=== PATIENT | female | born 1980 | race Caucasian/White ===

== ENCOUNTER → 2016-12-24 | Outpatient (CLI) | payer OTHER ==
[2016-12-24 13:55] LABS: ABSOLUTE LYMPHOCYTES (AUTO) 1.5 10^3/uL (0.5-4.7); ABSOLUTE MONOCYTES (AUTO) 0.3 10^3/uL (0.1-1.4); ABSOLUTE NEUT (AUTO) 4.3 10^3/uL (1.7-8.2); BASOPHILS % (AUTO) 0.4 % (0-2); EOSINOPHILS % (AUTO) 0.7 % (0-6); HEMATOCRIT 38.3 % (36.0-47.0); HEMOGLOBIN 12.8 g/dL (12.0-15.5); HGB HCT DIFFERENCE 0.1; LYMPHOCYTES % (AUTO) 24.2 % (13-45); MEAN CORPUSCULAR HEMOGLOBIN 29.9 pg (27.0-33.4); MEAN CORPUSCULAR HGB CONC 33.4 g/dL (32.0-36.0); MEAN CORPUSCULAR VOLUME 89 fl (80-97); MONOCYTES % (AUTO) 5.4 % (3-13); RED BLOOD COUNT 4.28 10^6/uL (3.72-5.28); SEGMENTED NEUTROPHILS % (AUTO) 69.3 % (42-78); WHITE BLOOD COUNT 6.2 10^3/uL (4.0-10.5)
[2016-12-24 14:14] LABS: ALANINE AMINOTRANSFERASE 26 U/L (9-52); ALBUMIN 4.4 g/dL (3.5-5.0); ALKALINE PHOSPHATASE 67 U/L (38-126); ANION GAP 12 (5-19); ASPARTATE AMINO TRANSFERASE 19 U/L (14-36); BILIRUBIN,TOTAL 0.3 mg/dL (0.2-1.3); BLOOD UREA NITROGEN 7 mg/dL (7-20); CALCIUM 9.7 mg/dL (8.4-10.2); CARBON DIOXIDE 27 mmol/L (22-30); CHLORIDE 104 mmol/L (98-107); CREATININE RESULT 0.54 mg/dL (0.52-1.25); GLUCOSE 84 mg/dL (75-110); POTASSIUM 4.4 mmol/L (3.6-5.0); SODIUM 142.7 mmol/L (137-145); TOTAL PROTEIN 7.1 g/dL (6.3-8.2)
== END ==
LOC: OD 09:43
PROVIDERS: ATTEND Orthopaedic Surgery
DX: L93.0 Discoid lupus erythematosus (principal)
CPT/HCPCS: 36415; 80053; 85025; 86038

== ENCOUNTER 2017-04-24 17:57 | Emergency (ER) | payer OTHER ==
[2017-04-24] MEDS ORDERED: METOCLOPRAMIDE HCL INJ/PF 10 MG/2 ML SDV IV ONE (20:08)
[2017-04-24] MEDS ORDERED: NORMAL SALINE 1000 ML 1,000 ML IV ONE (20:08)
--- NOTE | 2017-04-24 20:12 | ER Document Report ---
ED Medical Screen (RME) - General Chief Complaint: Vomiting Stated Complaint: VOMITING Time Seen by Provider: 04/24/17 20:08 Mode of Arrival: Ambulatory Information source: Patient Notes: Pt is a 36 year old female who presents to the ER today for 1 day of nausea/ vomiting with epigastric pain. She denies fever/chills, diarrhea or abd pain elsewhere. She has had this happen in the past but hasn't been diagnosed with anything. Primary care sent her here because zofran and 1L of fluids didn't work there today. TRAVEL OUTSIDE OF THE [place] IN LAST 30 DAYS: No - Related Data Allergies/Adverse Reactions: codeine Allergy (Verified 04/24/17 18:04) hydrocodone Allergy (Verified 04/24/17 18:04) oxycodone Allergy (Verified 04/24/17 18:04) promethazine [From Phenergan] Allergy (Verified 04/24/17 18:04) Sulfa (Sulfonamide Antibiotics) Allergy (Verified 04/24/17 18:04) latex Adverse Reaction (Verified 04/24/17 18:04) Past Medical History - General Information source: Patient - Social History Chew tobacco use (# tins/day): No Frequency of alcohol use: Rare Drug Abuse: None Renal/ Medical History: Denies: Hx Peritoneal Dialysis GI Medical History: Reports: Hx Gastroesophageal Reflux Disease Musculoskeltal Medical History: Reports Hx Arthritis, Reports Hx Musculoskeletal Deformity, Reports Hx Musculoskeletal Trauma - right wrist Traumatic Medical History: Reports: Hx Fractures - wrist Past Surgical History: Reports: Hx Oral Surgery - wisdom teeth - Immunizations Immunizations up to date: No Hx Diphtheria, Pertussis, Tetanus Vaccination: No Review of Systems - Review of Systems Gastrointestinal: See HPI Physical Exam - Vital signs Vitals: Temp Pulse Resp BP Pulse Ox 97.6 F 57 L 20 157/81 H 100 04/24/17 18:00 04/24/17 18:00 04/24/17 18:00 04/24/17 18:00 04/24/17 18:00 - Notes Notes: PHYSICAL EXAMINATION: GENERAL: actively intermittently vomiting, in no acute distress. Course - Vital Signs Vital signs: Temp Pulse Resp BP Pulse Ox 97.6 F 57 L 20 157/81 H 100 04/24/17 18:00 04/24/17 18:00 04/24/17 18:00 04/24/17 18:00 04/24/17 18:00
[2017-04-24 20:50] LABS: HEMATOCRIT 38.1 % (36.0-47.0); HEMOGLOBIN 13.1 g/dL (12.0-15.5); HGB HCT DIFFERENCE 1.2; MEAN CORPUSCULAR HEMOGLOBIN 30.6 pg (27.0-33.4); MEAN CORPUSCULAR HGB CONC 34.4 g/dL (32.0-36.0); MEAN CORPUSCULAR VOLUME 89 fl (80-97); RED BLOOD COUNT 4.28 10^6/uL (3.72-5.28); RED CELL DISTRIBUTION WIDTH 14.5 % (11.5-14.0); WHITE BLOOD COUNT 12.2 10^3/uL (4.0-10.5)
[2017-04-24 21:06] LABS: BAND NEUTROPHILS % (MANUAL) 1 % (3-5); BASOPHILS % (MANUAL) 1 % (0-2); EOSINOPHILS % (MANUAL) 0 % (0-6); LYMPHOCYTES % (MANUAL) 6 % (13-45); TOTAL CELLS COUNTED 100
[2017-04-24 21:08] LABS: ALANINE AMINOTRANSFERASE 26 U/L (9-52); ALBUMIN 4.7 g/dL (3.5-5.0); ALKALINE PHOSPHATASE 62 U/L (38-126); ANION GAP 15 (5-19); ASPARTATE AMINO TRANSFERASE 25 U/L (14-36); BILIRUBIN,DIRECT 0.3 mg/dL (0.0-0.4); BILIRUBIN,TOTAL 0.7 mg/dL (0.2-1.3); BLOOD UREA NITROGEN 9 mg/dL (7-20); CALCIUM 9.7 mg/dL (8.4-10.2); CARBON DIOXIDE 22 mmol/L (22-30); CHLORIDE 105 mmol/L (98-107); CREATININE RESULT 0.63 mg/dL (0.52-1.25); GLUCOSE 149 mg/dL (75-110); LIPASE 50.3 U/L (23-300); POTASSIUM 3.9 mmol/L (3.6-5.0); SODIUM 141.6 mmol/L (137-145); TOTAL PROTEIN 7.7 g/dL (6.3-8.2)
[2017-04-24 21:09] LABS: ANISOCYTOSIS SLIGHT; OVALOCYTES SLIGHT; PLATELET CLUMPS PRESENT; TOXIC GRANULATION SLIGHT
--- NOTE | 2017-04-24 22:17 | ER Document Report ---
ED GI/ - General Mode of Arrival: Ambulatory Information source: Patient TRAVEL OUTSIDE OF THE [place] IN LAST 30 DAYS: No - HPI Patient complains to provider of: Abdominal pain - Epigastric, Vomiting, Other - Nausea Onset: Other - 2 days Similar symptoms previously: Yes Recently seen / treated by doctor: Yes - Urgent care today. <MAC LI - Last Filed: 04/25/17 01:15> <YULISA NEWSOME - Last Filed: 04/25/17 05:12> - General Chief Complaint: Vomiting Stated Complaint: VOMITING Time Seen by Provider: 04/24/17 20:08 Notes: Patient is a 36-year-old female presenting to the emergency department for nausea and vomiting 2 days. Patient saw urgent care today and was given Zofran and 1 L fluids. Patient is continued to vomit. Patient also presents with epigastric pain. Patient states that she has had these symptoms before and that she gets them sporadically. Patient is currently on her menstrual cycle. Patient states that she is being sent to a GI specialist for a endoscopy. Patient states that in 2014 she had the same symptoms and was treated with migraine medications which relieved her symptoms. Patient has not been taking any ibuprofen or other medications. Patient denies any fever, chills, head injury, back pain, vaginal discharge, or dysuria. (MAC LI) - Related Data Allergies/Adverse Reactions: codeine Allergy (Verified 04/24/17 18:04) hydrocodone Allergy (Verified 04/24/17 18:04) oxycodone Allergy (Verified 04/24/17 18:04) promethazine [From Phenergan] Allergy (Verified 04/24/17 18:04) Sulfa (Sulfonamide Antibiotics) Allergy (Verified 04/24/17 18:04) latex Adverse Reaction (Verified 04/24/17 18:04) Past Medical History - General Information source: Patient - Social History Smoking Status: Former Smoker Chew tobacco use (# tins/day): No Frequency of alcohol use: Rare Drug Abuse: None Family History: DM, Malignancy Patient has suicidal ideation: No Patient has homicidal ideation: No GI Medical History: Reports: Hx Gastroesophageal Reflux Disease Musculoskeltal Medical History: Reports Hx Arthritis, Reports Hx Musculoskeletal Deformity, Reports Hx Musculoskeletal Trauma - right wrist Traumatic Medical History: Reports: Hx Fractures - wrist Past Surgical History: Reports: Hx Oral Surgery - wisdom teeth - Immunizations Immunizations up to date: No Hx Diphtheria, Pertussis, Tetanus Vaccination: No <MAC LI - Last Filed: 04/25/17 01:15> Review of Systems - Review of Systems Constitutional: No symptoms reported EENT: No symptoms reported Cardiovascular: No symptoms reported Respiratory: No symptoms reported Gastrointestinal: See HPI, Abdominal pain, Nausea, Vomiting Genitourinary: No symptoms reported Female Genitourinary: No symptoms reported Musculoskeletal: No symptoms reported Skin: No symptoms reported Hematologic/Lymphatic: No symptoms reported Neurological/Psychological: No symptoms reported -: Yes All other systems reviewed and negative <MAC LI - Last Filed: 04/25/17 01:15> Physical Exam <MAC LI - Last Filed: 04/25/17 01:15> <YULISA NEWSOME - Last Filed: 04/25/17 05:12> - Vital signs Vitals: Temp Pulse Resp BP Pulse Ox 97.6 F 57 L 20 157/81 H 100 04/24/17 18:00 04/24/17 18:00 04/24/17 18:00 04/24/17 18:00 04/24/17 18:00 - Notes Notes: GENERAL: Alert, interacts well. No acute distress. HEAD: Normocephalic, atraumatic. EYES: Appear normal. Pupils equal, round, and reactive to light. ENT: Dry mucus membranes, tongue midline. NECK: Full range of motion. Supple. Trachea midline. LUNGS: Clear to auscultation bilaterally, no wheezes, rales, or rhonchi. No respiratory distress. HEART: Regular rate and rhythm. No murmurs, gallops, or rubs. ABDOMEN: Soft, epigastric tenderness to palpation. Non-distended. Normal bowel sounds. EXTREMITIES: Moves all 4 extremities spontaneously. Normal strength. No edema. NEUROLOGICAL: Alert and oriented x3. Normal speech. No focal neurological deficits. GSC 15. PSYCH: Normal affect, normal mood. SKIN: Warm, dry, normal turgor. No rashes or lesions noted. (MAC LI) Course - Laboratory Result Diagrams: 04/24/17 20:40 04/24/17 20:40 <MAC LI - Last Filed: 04/25/17 01:15> - Laboratory Result Diagrams: 04/24/17 20:40 04/24/17 20:40 <YULISA NEWSOME - Last Filed: 04/25/17 05:12> - Re-evaluation Re-evalutation: 04/25/17 Patient has had full relief of her symptoms after Zofran, Benadryl, and Compazine. She is able to tolerate p.o. No further abdominal pain. Patient will be discharged home is to follow-up with her doctor. Understands and agrees with plan. (YULISA NEWSOME) - Vital Signs Vital signs: Temp Pulse Resp BP Pulse Ox 97.6 F 72 18 106/51 L 97 04/24/17 18:00 04/25/17 00:57 04/25/17 00:57 04/25/17 00:57 04/25/17 00:57 - Laboratory Laboratory results interpreted by me: 04/24/17 04/24/17 04/24/17 20:40 20:40 23:10 WBC 12.2 H RDW 14.5 H Seg Neuts % (Manual) 89 H Band Neutrophils % 1 L Lymphocytes % (Manual) 6 L Monocytes % (Manual) 1 L Abs Neuts (Manual) 11.0 H Glucose 149 H Urine Protein 30 H Urine Glucose (UA) 50 H Urine Ketones 80 H Urine Blood LARGE H Discharge <MAC LI - Last Filed: 04/25/17 01:15> <YULISA NEWSOME - Last Filed: 04/25/17 05:12> - Discharge Clinical Impression: Epigastric abdominal pain Vomiting Qualifiers: Vomiting type: unspecified Vomiting Intractability: non-intractable Nausea presence: with nausea Qualified Code(s): R11.2 - Nausea with vomiting, unspecified Condition: Stable Disposition: HOME, SELF-CARE Instructions: Evaluation of Upper Abdominal Pain ([facility]), Vomiting ([facility]) Prescriptions: Metoclopramide HCl [Reglan 10 mg Tablet] 1 tab PO TIDP PRN #25 tablet PRN Reason: Promethazine HCl [Phenergan 25 mg Tablet] 1 - 2 tab PO BIDP PRN #15 tablet PRN Reason: Sucralfate [Carafate 1 gm Tablet] 1 gm PO ACHS #30 tablet Forms: Return to Work Scribe Attestation: 04/25/17 05:12 I personally performed the services described in the documentation, reviewed and edited the documentation which was dictated to the scribe in my presence, and it accurately records my words and actions. (YULISA NEWSOME) Scribe Documentation - Scribe Written by Scribe:: Jose Mackey, 04/25/2017 130 acting as scribe for :: Leela <MAC LI - Last Filed: 04/25/17 01:15>
[2017-04-24] MEDS ORDERED: PROCHLORPERAZINE EDISYLATE INJ 10 MG/2 ML VIAL IV ONE ×2 (23:07→23:10)
[2017-04-24] MEDS ORDERED: FAMOTIDINE INJ/PF 20 MG/2 ML SDV IV ONE (23:07)
[2017-04-24] MEDS ORDERED: DIPHENHYDRAMINE HCL 50 MG/ML VIAL IV ONE (23:07)
[2017-04-24 23:38] LABS: AMORPHOUS SEDIMENT,URINE TRACE /HPF; APPEARANCE,URINE SLIGHTLY-CLOUDY; BILIRUBIN,URINE NEGATIVE (NEGATIVE); GLUCOSE, URINE 50 mg/dL (NEGATIVE); KETONES,URINE 80 mg/dL (NEGATIVE); LEUKOCYTE ESTERASE,URINE NEGATIVE (NEGATIVE); NITRITE,URINE NEGATIVE (NEGATIVE); PROTEIN,URINE 30 mg/dL (NEGATIVE); URINE SPECIFIC GRAVITY 1.024; UROBILINOGEN,URINE NEGATIVE mg/dL (<2.0)
[2017-04-25] MEDS ORDERED: ONDANSETRON ODT 4 MG TAB (6 TAB/DSPK) PO PRN (00:40)
[2017-04-25 00:58] VITALS: BP 106/51
== END 2017-04-25 00:56 | disposition home or self-care (01) ==
LOC: ER 17:57
DX: R11.2 Nausea with vomiting, unspecified (principal); R10.13 Epigastric pain; Z88.5 Allergy status to narcotic agent; Z88.8 Allergy status to other drugs, medicaments and biological substances; Z88.2 Allergy status to sulfonamides; Z87.891 Personal history of nicotine dependence; Z87.19 Personal history of other diseases of the digestive system
CPT/HCPCS: 99283; 96361; 96374; 96375; 36415; 83690; 84703; 85025; 80053; 81001; J1200; J2765; J0780; J7030; S0028

== ENCOUNTER 2017-04-29 02:25 | Emergency (ER) | payer OTHER ==
[2017-04-29] MEDS ORDERED: NORMAL SALINE 1000 ML 1,000 ML IV ONE (04:24)
[2017-04-29] MEDS ORDERED: PROCHLORPERAZINE EDISYLATE INJ 10 MG/2 ML VIAL IV ONE (04:24)
[2017-04-29] MEDS ORDERED: DIPHENHYDRAMINE HCL 50 MG/ML VIAL IV ONE (04:24)
--- NOTE | 2017-04-29 04:26 | ER Document Report ---
ED GI/ - General Chief Complaint: Nausea/Vomiting Stated Complaint: VOMITING,DIARRHEA,ABDOMINAL PAIN Time Seen by Provider: 04/29/17 04:16 Notes: Patient is a 36-year-old female who comes emergency department for chief complaint of multiple episodes of vomiting along with upper abdominal pain. She states she was seen for this about 4 days ago, she states she tried taking Zofran but continued to vomit. She denies any abdominal surgeries. She denies fever, she reports some loose stools, denies blood in vomit or stool. She denies flank pain, vaginal discharge or bleeding. Past medical history of lupus , on Plaquenil. TRAVEL OUTSIDE OF THE [place] IN LAST 30 DAYS: No - Related Data Allergies/Adverse Reactions: codeine Allergy (Verified 04/29/17 05:13) hydrocodone Allergy (Verified 04/29/17 05:13) oxycodone Allergy (Verified 04/29/17 05:13) promethazine [From Phenergan] Allergy (Verified 04/29/17 05:13) Sulfa (Sulfonamide Antibiotics) Allergy (Verified 04/29/17 05:13) latex Adverse Reaction (Verified 04/29/17 05:13) Home Medications: Current Home Medications Pantoprazole Sodium [Pantoprazole Sodium] 1 tab PO QAM 04/29/17 [History] Trimethobenzamide HCl [Tigan 300 mg Capsule] 1 cap PO BID 04/29/17 [History] Zolpidem Tartrate [Zolpidem Tartrate] 1 tab PO QHS 04/29/17 [History] Past Medical History - General Information source: Patient - Social History Smoking Status: Never Smoker Frequency of alcohol use: Occasional Drug Abuse: None Lives with: Alone Family History: DM, Malignancy Patient has suicidal ideation: No Patient has homicidal ideation: No Renal/ Medical History: Denies: Hx Peritoneal Dialysis GI Medical History: Reports: Hx Gastroesophageal Reflux Disease Musculoskeltal Medical History: Reports Hx Arthritis, Reports Hx Musculoskeletal Deformity, Reports Hx Musculoskeletal Trauma - right wrist Traumatic Medical History: Reports: Hx Fractures - wrist Past Surgical History: Reports: Hx Oral Surgery - wisdom teeth - Immunizations Immunizations up to date: No Hx Diphtheria, Pertussis, Tetanus Vaccination: No Review of Systems - Review of Systems Constitutional: No symptoms reported EENT: No symptoms reported Cardiovascular: No symptoms reported Respiratory: No symptoms reported Gastrointestinal: See HPI Genitourinary: No symptoms reported Female Genitourinary: No symptoms reported Musculoskeletal: No symptoms reported Skin: No symptoms reported Hematologic/Lymphatic: No symptoms reported Neurological/Psychological: No symptoms reported Physical Exam - Vital signs Vitals: Temp Pulse Resp BP Pulse Ox 97.7 F 66 18 169/93 H 100 04/29/17 02:30 04/29/17 02:30 04/29/17 02:30 04/29/17 02:30 04/29/17 02:30 Interpretation: Normal - General General appearance: Alert, Anxious In distress: Mild - Patient appears uncomfortable, grabbed a bag and vomited while I was evaluating her - HEENT Head: Normocephalic, Atraumatic Eyes: Normal Conjunctiva: Normal Eyelashes: Normal Pupils: PERRL Mouth/Lips: Normal Mucous membranes: Dry Pharynx: Normal Neck: Normal - Respiratory Respiratory status: No respiratory distress Chest status: Nontender Breath sounds: Normal Chest palpation: Normal - Cardiovascular Rhythm: Regular Heart sounds: Normal auscultation Murmur: No - Abdominal Inspection: Normal Distension: No distension Bowel sounds: Normal Tenderness: Tender - Tenderness in the general upper abdomen, slightly worse in the epigastric area, lower abdomen is unremarkable Organomegaly: No organomegaly - Back Back: Normal, Nontender. No: Tender, CVA tenderness - Extremities General upper extremity: Normal inspection, Nontender, Normal color, Normal ROM , Normal temperature General lower extremity: Normal inspection, Nontender, Normal color, Normal ROM , Normal temperature, Normal weight bearing. No: Bobby's sign - Neurological Neuro grossly intact: Yes Cognition: Normal Orientation: AAOx4 Adams Coma Scale Eye Opening: Spontaneous Adams Coma Scale Verbal: Oriented Ashish Coma Scale Motor: Obeys Commands Ashish Coma Scale Total: 15 Speech: Normal Motor strength normal: LUE, RUE, LLE, RLE Sensory: Normal - Psychological Associated symptoms: Anxious - Skin Skin Temperature: Warm Skin Moisture: Dry Skin Color: Normal Course - Re-evaluation Re-evalutation: Patient with epigastric tenderness, vomiting, however her vital signs are unremarkable. CBC shows no concerning abnormality, chemistry unremarkable, lipase unremarkable. Normal LFTs. HCG is negative. Ultrasound showing mild hepatic steatosis with no acute findings. After Compazine, Benadryl patient comfortable, relaxed, denies any current symptoms. Given IV fluids. 04/29/17 07:38 Patient vomited. Given GI cocktail. After this reported improvement and that she was ready to leave. Tolerated fluids PO. - Vital Signs Vital signs: Temp Pulse Resp BP Pulse Ox 98.8 F 74 20 135/91 H 99 04/29/17 06:44 04/29/17 06:44 04/29/17 06:44 04/29/17 06:44 04/29/17 06:44 - Laboratory Result Diagrams: 04/29/17 04:55 04/29/17 04:55 Laboratory results interpreted by me: 04/29/17 04/29/17 04:55 04:55 RDW 14.5 H Seg Neutrophils % 89.5 H Lymphocytes % 7.3 L Monocytes % 2.7 L Absolute Neutrophils 9.4 H Glucose 154 H Direct Bilirubin 0.5 H Discharge - Discharge Clinical Impression: Epigastric abdominal pain Vomiting Qualifiers: Vomiting type: unspecified Vomiting Intractability: non-intractable Nausea presence: with nausea Qualified Code(s): R11.2 - Nausea with vomiting, unspecified Condition: Stable Disposition: HOME, SELF-CARE Additional Instructions: Your ultrasound shows no acute abnormalities. Shows mild hepatic steatosis. Your lab work shows no concerning abnormalities. I recommend both a close follow-up with gastroenterology for endoscopy and also potentially a HIDA scan because of your return symptoms. Take the Carafate you were given previously, take the omeprazole in addition to this, take the Reglan for nausea if needed. Start with bland food. Return to emergency department for any concerning or worsening symptoms including returned or uncontrolled vomiting, increased pain, fever, or any other concerning symptoms. Prescriptions: Metoclopramide HCl [Reglan] 5 mg PO ASDIR PRN #30 tablet PRN Reason: Omeprazole 40 mg PO DAILY #30 capsule.dr Forms: Return to Work
[2017-04-29 05:08] LABS: ABSOLUTE LYMPHOCYTES (AUTO) 0.8 10^3/uL (0.5-4.7); ABSOLUTE MONOCYTES (AUTO) 0.3 10^3/uL (0.1-1.4); ABSOLUTE NEUT (AUTO) 9.4 10^3/uL (1.7-8.2); BASOPHILS % (AUTO) 0.3 % (0-2); EOSINOPHILS % (AUTO) 0.2 % (0-6); HEMATOCRIT 40.4 % (36.0-47.0); HEMOGLOBIN 14.1 g/dL (12.0-15.5); HGB HCT DIFFERENCE 1.9; LYMPHOCYTES % (AUTO) 7.3 % (13-45); MEAN CORPUSCULAR HEMOGLOBIN 30.9 pg (27.0-33.4); MEAN CORPUSCULAR VOLUME 88 fl (80-97); MONOCYTES % (AUTO) 2.7 % (3-13); RED BLOOD COUNT 4.57 10^6/uL (3.72-5.28); RED CELL DISTRIBUTION WIDTH 14.5 % (11.5-14.0); SEGMENTED NEUTROPHILS % (AUTO) 89.5 % (42-78); WHITE BLOOD COUNT 10.5 10^3/uL (4.0-10.5)
[2017-04-29 05:25] LABS: ALANINE AMINOTRANSFERASE 17 U/L (9-52); ALBUMIN 4.5 g/dL (3.5-5.0); ALKALINE PHOSPHATASE 74 U/L (38-126); ANION GAP 12 (5-19); ASPARTATE AMINO TRANSFERASE 24 U/L (14-36); BILIRUBIN,DIRECT 0.5 mg/dL (0.0-0.4); BILIRUBIN,TOTAL 0.8 mg/dL (0.2-1.3); BLOOD UREA NITROGEN 10 mg/dL (7-20); CALCIUM 9.6 mg/dL (8.4-10.2); CARBON DIOXIDE 22 mmol/L (22-30); CHLORIDE 104 mmol/L (98-107); CREATININE RESULT 0.63 mg/dL (0.52-1.25); GLUCOSE 154 mg/dL (75-110); LIPASE 84.8 U/L (23-300); SODIUM 138.2 mmol/L (137-145); TOTAL PROTEIN 7.1 g/dL (6.3-8.2)
--- NOTE | 2017-04-29 05:48 | RADIOLOGY REPORT (SQ) ---
EXAM DESCRIPTION: U/S ABDOMEN LIMITED W/O DOP COMPLETED DATE/TIME: 04/29/2017 5:18 am REASON FOR STUDY: RUQ pain, vomiting COMPARISON: None. TECHNIQUE: Dynamic and static grayscale images acquired of the abdomen and recorded on PACS. Additio nal selected color Doppler and spectral images recorded. LIMITATIONS: None. FINDINGS: PANCREAS: No masses. Visualized pancreatic duct normal caliber. LIVER: No masses. Mild hepatic steatosis. LIVER VASCULATURE: Normal directional flow of the main portal vein and hepatic veins. GALLBLADDER: No stones. Normal wall thickness. No pericholecystic fluid. ULTRASOUND-DETECTED GOODMAN'S SIGN: Negative. INTRAHEPATIC DUCTS AND COMMON DUCT: CBD and intrahepatic ducts normal caliber. No filling defects. INFERIOR VENA CAVA: Normal flow. AORTA: No aneurysm. RIGHT KIDNEY: Normal size. Normal echogenicity. No solid or suspicious masses. No hydronephrosis. No calcifications. PERITONEAL AND RIGHT PLEURAL SPACE: No ascites or effusions. OTHER: No other significant findings. IMPRESSION: No acute findings. Mild hepatic steatosis. TECHNICAL DOCUMENTATION: JOB ID: [id number] [employer]- All Rights Reserved
[2017-04-29] MEDS ORDERED: METOCLOPRAMIDE HCL ORAL SOLN 10 MG/10 ML UDCUP PO ONE (06:48)
[2017-04-29] MEDS ORDERED: LIDOCAINE 2% VISCOUS SOLN 20 ML UDCUP PO ONE (06:48)
[2017-04-29] MEDS ORDERED: MAG HYDROX/AL HYDROX/SIMETH SUSP 30 ML UDCUP PO ONE (06:48)
[2017-04-29 08:38] VITALS: BP 112/64
== END 2017-04-29 08:56 | disposition home or self-care (01) ==
LOC: ER 02:25
DX: R11.2 Nausea with vomiting, unspecified (principal); R19.7 Diarrhea, unspecified; R10.13 Epigastric pain
CPT/HCPCS: 99284; 96374; 96375; 36415; 83690; 84703; 85025; 80053; 76705; J1200; J3490; J0780; J7030